=== PATIENT | male | born 1950 | race Caucasian/White ===

== ENCOUNTER → 2021-02-24 11:27 | Outpatient (CLI) | payer MEDICARE, SELFPAY | PROVIDERS: Visit Provider Nurse Practitioner Family | DX: Z11.52 Encounter for screening for COVID-19 (principal) | CPT/HCPCS: C9803; U0003; U0005 ==

== ENCOUNTER 2023-03-11 07:38 | Day surgery (SDC) | payer MEDICARE, SELFPAY ==
[2023-03-10 14:07] VITALS: BMI 44.7
[2023-03-11 08:13] VITALS: BP 153/79; PULSE 74; RESP 18; TEMP 36.4; O2SAT 96
== END 2023-03-11 09:45 | disposition home or self-care (01) ==
LOC: OUTP 07:39
PROVIDERS: PCP Internal Medicine; Visit Provider Ophthalmology
PROC: (CPT 66821; principal; 2023-03-11 09:00)
DX: H26.40 Unspecified secondary cataract (principal)
CPT/HCPCS: 66821